=== PATIENT | female | born 1980 | race Caucasian/White ===

== ENCOUNTER 2016-01-14 06:58 | Outpatient (RCR) | payer BC | END 2016-03-20 | disposition home or self-care (01) | LOC: CARD 06:58 | PROVIDERS: ATTEND Nurse Practitioner Community Health | DX: I49.9 Cardiac arrhythmia, unspecified (principal) | CPT/HCPCS: 93270 ==

== ENCOUNTER 2017-08-03 15:00 | Outpatient (CLI) | payer BC ==
[~2017-08-03] VITALS: Ht 160 cm; Wt 61.2 kg
== END 2017-08-03 15:43 ==
LOC: PREOP 15:00
PROVIDERS: ATTEND Surgery
DX: Z01.818 Encounter for other preprocedural examination (principal); K92.1 Melena; Z80.0 Family history of malignant neoplasm of digestive organs

== ENCOUNTER 2017-08-08 08:01 | Day surgery (SDC) | payer BC ==
[~2017-08-08] VITALS: Ht 160 cm; Wt 61.2 kg
[2017-08-08] MEDS ORDERED: LACTATED RINGERS 1,000 ML IV ONE (08:16)
--- NOTE | 2017-08-08 08:27 | Progress Note-Pre Operative ---
Pre-Operative Progress Note H&P Reviewed The H&P was reviewed, patient examined and no changes noted. Date Seen by Provider: Aug 08, 2017 Time Seen by Provider: : Date H&P Reviewed: Aug 08, 2017 Time H&P Reviewed: : Pre-Operative Diagnosis: constipation, blood in stool, family history colon cancer MICHEAL MO DO Aug 08, 2017 08:27
[2017-08-08] MEDS ORDERED: LACTATED RINGERS 1,000 ML IV STA (08:28)
[2017-08-08 08:31] VITALS: BP 128/83
[2017-08-08] MEDS ORDERED: proPOfol 200 MG/20 ML (DIPRIVAN) VIAL IV ONE (08:33)
[2017-08-08] MEDS ORDERED: LIDOCAINE PF 2% 5 ML (XYLOCAINE) VIAL ONE (08:33)
--- NOTE | 2017-08-08 09:17 | Progress Note-Post Operative ---
Post-Operative Progess Note Surgeon (s)/Alumnae Secretary (s) Surgeon MICHEAL MO DO Alumnae Secretary: na Pre-Operative Diagnosis constipation, blood in stool, family history colon cancer Post-Operative Diagnosis ascending colon polyp Procedure & Operative Findings Date of Procedure 08/08/17 Procedure Performed/Findings colonoscopy with hot bx polyectomy Anesthesia Type per freight claim investigator Estimated Blood Loss Estimated blood loss (mL): none Specimens/Packing Specimens Removed ascending colon polyp MICHEAL MO DO Aug 08, 2017 09:17
--- NOTE | 2017-08-08 09:18 | Discharge Inst-Simple/Standard ---
Discharge Inst-Standard Patient Instructions/Follow Up Plan of Care/Instructions/FU: 2 weeks Conrad Activity as Tolerated: Yes Discharge Diet: Regular Diet (high fiber) MICHEAL MO DO Aug 08, 2017 09:18
[2017-08-08 09:25] VITALS: BP 119/73
[2017-08-08 09:55] VITALS: BP 121/77
--- NOTE | 2017-08-08 12:24 | Anesthesia-General Post-Op ---
MAC Patient Condition Mental Status/LOC: Same as Preop Cardiovascular: Satisfactory Nausea/Vomiting: Absent Respiratory: Satisfactory Pain: Controlled Complications: Absent Post Op Complications Complications None Follow Up Care/Instructions Patient Instructions None needed. Anesthesiology Discharge Order Discharge Order Patient is doing well, no complaints, stable vital signs, no apparent adverse anesthesia problems. No complications reported per nursing. RONDA RAMOS CRNA Aug 08, 2017 12:23
--- NOTE | 2017-08-08 15:54 | OPERATIVE REPORT ---
DATE OF SERVICE: 08/08/2017 PREOPERATIVE DIAGNOSIS: Constipation, family history of colon cancer, blood in stool. POSTOPERATIVE DIAGNOSIS: Ascending colon polyp. PROCEDURE: Colonoscopy with hot biopsy polypectomy, ascending colon. SURGEON: Micheal Martines DO. ANESTHESIA: Per PRODUCT DEVELOPMENT WORKER. ESTIMATED BLOOD LOSS: None. COMPLICATIONS: None. INDICATIONS: The patient is a 37-year-old female with family history of colon cancer, some bright red blood per stool and constipation issues. She understands risks and benefits of procedure and wished to proceed with procedure. Consent was signed in the chart. PROCEDURE: The patient was taken to the endoscopy suite, placed in left lateral lower recumbent position. Timeout was performed. Digital rectal exam was performed. There were no palpable polyps, mass or ulcerations. The scope was inserted in the rectum and advanced all the way to the cecum with minimal difficulty. Prep was adequate. Scope was then slowly retracted back. There were no polyps, masses or ulcerations in the cecum. Within the ascending colon, a small polyp was present, which hot biopsy polypectomy was performed. Scope was continuously retracted back. There are no other pathology in the ascending colon, transverse colon, descending colon and sigmoid colon. Once in the rectum, scope was also retroflexed noting no other pathology. Scope was returned to its normal position, slowly withdrawn until completely removed. The patient tolerated procedure well without any complications. RECOMMENDATIONS: The patient will need followup in 2 weeks to discuss pathology results. Would recommend repeat colonoscopy in 5 years. If she has any problems prior to that, she should be reevaluated at that time. Job ID: [id number] DocumentID: [id number] Dictated Date: 08/08/2017 09:20:30 Senior Data Mining Analyst Date: 08/08/2017 15:53:34 Dictated By: MICHEAL MARTINES DO [facility]
== END 2017-08-08 09:55 | disposition home or self-care (01) ==
LOC: ENDO 08:01
PROVIDERS: ATTEND Surgery
DX: D12.2 Benign neoplasm of ascending colon (principal); Z87.891 Personal history of nicotine dependence
CPT/HCPCS: 84703; 88305

== ENCOUNTER 2018-05-27 22:13 | Emergency (ER) | payer BC ==
[~2018-05-27] VITALS: Ht 160 cm; Wt 61.2 kg
[2018-05-27 23:04] LABS: BILIRUBIN,URINE NEGATIVE (NEGATIVE); CLARITY,URINE CLEAR; COLOR,URINE YELLOW; GLUCOSE, URINE (UA) NEGATIVE (NEGATIVE); KETONES,URINE NEGATIVE (NEGATIVE); LEUKOCYTE ESTERASE ,URINE 1+ (NEGATIVE); NITRITE,URINE NEGATIVE (NEGATIVE); PH,URINE 6.5 (5-9); PROTEIN,URINE NEGATIVE (NEGATIVE); UROBILINOGEN,URINE NORMAL (NORMAL)
[2018-05-27 23:23] LABS: BACTERIA,URINE TRACE /HPF; WBC,URINE RARE /HPF
[2018-05-27 23:27] LABS: BASOPHILS % (AUTO) 0 % (0-10); EOSINOPHILS # (AUTO) 0.1 10^3/uL (0.0-0.3); EOSINOPHILS % (AUTO) 1 % (0-10); HEMATOCRIT 36 % (35-52); HEMOGLOBIN 12.7 G/DL (11.5-16.0); LYMPHOCYTES # (AUTO) 4.1 X 10^3 (1.0-4.0); LYMPHOCYTES % (AUTO) 51 % (12-44); MEAN CORPUSCULAR HEMOGLOBIN 32 PG (25-34); MEAN CORPUSCULAR HGB CONC 35 G/DL (32-36); MEAN CORPUSCULAR VOLUME 90 FL (80-99); MEAN PLATELET VOLUME 9.8 FL (7.4-10.4); MONOCYTES # (AUTO) 0.6 X 10^3 (0.0-1.0); MONOCYTES % (AUTO) 7 % (0-12); NEUTROPHILS # (AUTO) 3.3 X 10^3 (1.8-7.8); NEUTROPHILS % (AUTO) 41 % (42-75); PLATELET COUNT 494 10^3/uL (130-400); RED CELL DISTRIBUTION WIDTH 12.6 % (10.0-14.5)
[2018-05-27 23:40] LABS: ALANINE AMINOTRANSFERASE 7 U/L (0-55); ALBUMIN 4.7 GM/DL (3.2-4.5); ALKALINE PHOSPHATASE 46 U/L (40-136); BILIRUBIN,TOTAL 0.3 MG/DL (0.1-1.0); BUN/CREATININE RATIO 11; CALCIUM 9.9 MG/DL (8.5-10.1); CARBON DIOXIDE 18 MMOL/L (21-32); CHLORIDE 107 MMOL/L (98-107); GFR ESTIMATED > 60; GLUCOSE 117 MG/DL (70-105); MAGNESIUM 2.3 MG/DL (1.8-2.4); POTASSIUM 2.7 MMOL/L (3.6-5.0); SODIUM 141 MMOL/L (135-145); TOTAL PROTEIN 7.2 GM/DL (6.4-8.2)
[2018-05-28] LABS: TSH (THYROID ANALYZER) 4.49 UIU/ML (0.35-4.94)
[2018-05-28] MEDS ORDERED: KCL 10 MEQ TAB (MICRO K) PO ONE ×2 (00:15→00:30)
[2018-05-28] MEDS ORDERED: RX-HYDROXYZINE PAMOATE 25 MG CAP #4 PO STA (00:23)
--- NOTE | 2018-05-28 00:25 | ED General ---
General Chief Complaint: Psych/Social Disorder Stated Complaint: DIZZINESS Nursing Triage Note: pt presents to ed with complaints of light headedness, dizziness, palpitations, heart racing, starting aprox 45 min machine captain when she was sitting on her bed working on her computer. Pt also reports park that started earlier today that seemed unusual for her. pt also reports her life and work has been stressful lately Nursing Sepsis Screen: No Definite Risk Source of Information: Patient, Spouse Exam Limitations: Other (PT AND BOTH EXTREMELY ANXIOUS AND TALK NON- STOP, TRIES TO DO ALL TALKING FOR PT) History of Present Illness Date Seen by Provider: May 27, 2018 Time Seen by Provider: 22:45 Initial Comments PT ARRIVES VIA POV FROM HOME PT STATES "ANXIETY--GO INTO A PANIC MODE" STATES IMMEDIATELY PRIOR TO ARRIVAL, WHILE SITTING ON BED WHILE ON COMPUTER ( WAS ALSO SITTING ON BED AND ON A COMPUTER), PT SUDDENLY BECAME LIGHTHEADED, GOT SHAKEY, FELT LIKE HER HEART WAS RACING, THEN GOT TINGLY ALL OVER AND THEN COULDN'T FEEL HER ARMS OR HER LEGS, AND SUDDENLY THREW THE COMPUTER OUT OF THE WAY AND JUMPED OUT OF BED PT STATES "I FREAKED OUT AND THOUGHT I WAS GONNA " THEN "FREAKED OUT" AND THEY HAVE BEEN "GOOGLING" SYMPTOMS 'NON-STOP" AND THEN THEY CAME HERE, AND ARE STILL "GOOGLING" ON ARRIVAL HERE. PT STATES SHE TOOK A BENADRYL AND MELATONIN TONIGHT--NORMAL FOR HER, AND DID NOT TAKE EXTRA STATES SHE IS FEELING BETTER NOW, BUT STILL HAS A "WEIRD FEELING" AND SHE FEELS LIGHT HEADED WITH MOVEMENTS OF HER HEAD, "HARD TO FOCUS" AND "HEAD FEELS FOGGY" AND THE TOP OF HER SKULL FELT NUMB 30 MINUTES PRIOR TO ARRIVAL NO HEADACHE NO CHEST PAIN NO SHORTNESS OF BREATH NO NAUSEA/VOMITING NO FEVER, NO URI SYMPTOMS OR RECENT ILLNESS HAS HISTORY OF ANXIETY, BUT HAS NEVER HAD IT THIS BAD BEFORE. 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, BUT DENIES ANY NEW OR WORSENING OF STRESS PCP: CANDI-K, HONING JOB SETTER Cody RIVERA Allergies and Home Medications Allergies Coded Allergies: No Known Drug Allergies (Verified Allergy, Unknown, 06/14/07) Home Medications No Active Prescriptions or Reported Meds Patient Home Medication List Home Medication List Reviewed: Yes Review of Systems Review of Systems Constitutional: see HPI, dizziness EENTM: no symptoms reported Respiratory: no symptoms reported Cardiovascular: see HPI, palpitations Gastrointestinal: no symptoms reported Genitourinary: no symptoms reported : No LMP: May 20, 2018 (NORMAL. NO CONTROL) Musculoskeletal: no symptoms reported Skin: no symptoms reported Psychiatric/Neurological: See HPI Hematologic/Lymphatic: No Symptoms Reported Immunological/Allergic: no symptoms reported Past Ajaphvs-Pcqtog-Xoklvs Hx Patient Social History Alcohol Use: Occasionally Uses Recreational Drug Use: No Smoking Status: Former Smoker Type Used: Cigarettes Former Smoker, Quit: May 28, 2002 Recent Foreign Travel: No Contact w/Someone Who Travel: No Recent Infectious Disease Expo: No Recent Hopitalizations: No Physical Abuse: No Sexual Abuse: No Mistreated: No Fear: No Immunizations Up To Date Date of Influenza Vaccine: Feb 03, 2013 Seasonal Allergies Seasonal Allergies: No Past Medical History Surgeries: Yes (wisdom teeth; COLONOSCOPY) Respiratory: No Cardiac: No Neurological: No Genitourinary: No Gastrointestinal: Yes (blood in stools) Chronic Constipation Musculoskeletal: No Endocrine: No HEENT: No Cancer: No Psychosocial: Yes Sleep Difficulties, Anxiety Integumentary: No Blood Disorders: No Physical Exam Vital Signs Vital Signs - First Documented 05/28/18 00:39 Pulse 80 Resp 20 B/P (MAP) 177/77 (110) Pulse Ox 98 Capillary Refill : Less Than 3 Seconds Height, Weight, BMI Height: 5'3.00" Weight: 135lbs. 0.0oz. 61.685141yy; 23.9 BMI Method:Stated General Appearance: No Apparent Distress, WD/WN, Other (PT IS RELATIVELY CALM AT THIS TIME) HEENT: PERRL/EOMI, Normal ENT Inspection Neck: Full Range of Motion, Normal Inspection, Non Tender, Supple Respiratory: Normal Breath Sounds, No Accessory Muscle Use, No Respiratory Distress Cardiovascular: Regular Rate, Rhythm, No Edema, No JVD, No Murmur, Normal Peripheral Pulses Gastrointestinal: Non Tender, Soft Back: Normal Inspection Extremity: Normal Inspection Neurologic/Psychiatric: Alert, Oriented x3, No Motor/Sensory Deficits, family practice doctor II- XII Norm as Tested, Other (ANXIOUS) Skin: Normal Color, Warm/Dry Progress/Results/Core Measures Suspected Sepsis Recent Fever Within 48 Hours: No Infection Criteria Present: None New/Unexplained Altered Menta: No Sepsis Screen: No Definite Risk SIRS Temperature:97.7 Pulse: 80 Respiratory Rate: 14 Blood Pressure 134 /67 Mean: 89 Results/Orders Lab Results My Orders Vital Signs/I&O Capillary Refill : Less Than 3 Seconds Blood Pressure Mean: 89 Progress Note : Progress Note UNEVENTFUL ER STAY PT CALM AND SYMPTOM-FREE AT DISMISSAL Diagnostic Imaging Comments CT HEAD--NO ACUTE PROCESS, PER [facility] VIA FAX @ [id number] Reviewed: Reviewed by Me Departure Impression Primary Impression: Anxiety Additional Impression: Hypokalemia Disposition: HOME, SELF-CARE Condition: Improved Departure-Patient Inst. Referrals: JOHN PEREZ DO (PCP) Primary Care Physician SHARON RIVERA APRN (Family) Primary Care Physician Patient Instructions: Anxiety, Adult (DC), Hypokalemia (DC), Panic Disorder (DC ) Add. Discharge Instructions: HOME, REST EQUAL AMOUNTS OF WATER AND GATORADE FOLLOW UP WITH YOUR DR THIS WEEK FOR FURTHER CARE, RETURN TO ER IF WORSE All discharge instructions reviewed with patient and/or family. Voiced understanding. Scripts No Active Prescriptions or Reported Meds LIEN ROBLES DO May 28, 2018 00:25
[2018-05-28 00:39] VITALS: BP 177/77
--- NOTE | 2018-05-28 06:28 | Diagnostic Imaging Report ---
PROCEDURE: CT head without contrast. TECHNIQUE: Multiple contiguous axial images were obtained through the brain without the use of intravenous contrast. Auto Exposure Controls were utilized during the CT exam to meet ALARA standards for radiation dose reduction. INDICATION: Dizziness. COMPARISON: None FINDINGS: There is no midline shift or mass effect. The ventricles and sulci are unremarkable. No evidence for acute intracranial hemorrhage, abnormal extra-axial fluid collections or cerebral edema is present. The basilar cisterns are unremarkable. The bony calvarium is intact. The visualized paranasal sinuses and mastoid air cells are clear. IMPRESSION: Negative appearing noncontrast CT of the head. A preliminary report was provided by [facility]. Dictated by: Dictated on workstation # [id number]
== END 2018-05-28 00:39 | disposition home or self-care (01) ==
LOC: EDUNIT# 22:13 → ER 22:14
DX: F41.9 Anxiety disorder, unspecified (principal); E87.6 Hypokalemia; Z87.891 Personal history of nicotine dependence; Z87.19 Personal history of other diseases of the digestive system
CPT/HCPCS: 36415; 70450; 80053; 81000; 83735; 84443; 84703; 85025